=== PATIENT | male | born 1930 | race Caucasian/White ===

== ENCOUNTER 2017-11-23 14:08 | Inpatient (IN) ==
--- OUTSIDE RECORDS SUMMARY | 2017-11-23 16:05 | External Medical Summary | Summary of Care ---
:1930 Author Name Cal Santiago M.D. Address [address] [place] [address] [place] [address] Care Team Providers Name Role Phone Jeovanny Gonzalez, Juyd Mcmanus Unavailable Unavailable Jack Gonzalez, Cal Unavailable Unavailable Lesly Tucker Unavailable Unavailable Justine Gonzalez, Guy Unavailable Unavailable zzTobiaYonathan fierro Unavailable Unavailable Unavailable Unavailable Unavailable Functional Status Functional Status Health Issues Name Dates Details Functional status health issues are not documented Status: Cognitive Status Health Issues Name Dates Details Cognitive status health issues are not documented Status: Problems Name Dates Details Nycturia (788.43, R35.1) Status: Active Dizziness (780.4, R42) Status: Active Insomnia (780.52, G47.00) Status: Active Osteoporosis (733.00, M81.0) Status: Active Upper respiratory infection (465.9, J06.9) Status: Active Basal cell carcinoma of skin (173.91, C44.91) Status: Active Anxiety disorder (300.00, F41.9) Status: Active Mitral regurgitation (424.0, I34.0) Status: Active Benign essential hypertension (401.1, I10) Status: Active Contusion (924.9, T14.8) Status: Active Hyperlipidemia (272.4, E78.5) Status: Active Hypertrophy of breast (611.1, N62) Status: Active Anemia (285.9, D64.9) Status: Active Fecal occult blood test positive (792.1, R19.5) Status: Active Diverticulosis (562.10, K57.90) Status: Active Iron deficiency anemia (280.9, D50.9) Status: Active Foreign body in colon (936, T18.4XXA) Status: Active BPH (benign prostatic hypertrophy) (600.00, N40.0) Status: Active 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 Refills: 0 Yonathan Up M.D. Start 23-Jul-2008 Active Caltrate 600+D 600-400 MG-UNIT TABS TAKE 1 TABLET DAILY. Refills: 0 Yonathan Up M.D. Start 23-Jul-2008 Active Co Q-10 150 MG Oral Capsule TAKE DIRECTED. Refills: 0 Yonathan Up M.D. Start 23-Jul-2008 Active Saw [place] 450 MG Oral Capsule TAKE DIRECTED. Refills: 0 Yonathan Up M.D. Start 23-Jul-2008 Active Vitamin E 100 UNIT Oral Capsule TAKE 1 TABLET DAILY. Refills: 0 Yonathan Up M.D. Start 23-Jul-2008 Active DiazePAM 5 MG Oral Tablet TAKE 1 TABLET NEEDED. Quantity: 30 Refills: 5 Yonathan Up M.D. Start 23-Jul-2008 Active Alendronate Sodium 70 MG Oral Tablet TAKE 1 TABLET ONCE WEEKLY(SAME DAY ONCE EVERY WEEK) Quantity: 4 Refills: 12 Guy Fletcher M.D. Start 29-Jun-2009 Active Lisinopril 10 MG Oral Tablet TAKE 1 TABLET DAILY DIRECTED. Quantity: 30 Refills: 11 Yonathan Up M.D. Start 24-Aug-2009 Active Simvastatin 20 MG Oral Tablet TAKE 1 TABLET DAILY. Quantity: 30 Refills: 5 Yonathan Up M.D. Start 02-Aug-2009 Active Furosemide 40 MG Oral Tablet TAKE ONE TABLET BY MOUTH DAILY. Quantity: 30 Refills: 11 Jyotsna P.ADinesh Gabriel Start 02-Aug-2009 Active Finasteride 5 MG Oral Tablet take one tablet by mouth every day Quantity: 90 Refills: 3 Cal Santiago M.D. 27-Nov-2012 Active RaNITidine HCl TABS Refills: 0 Active Metoprolol Tartrate TABS Refills: 0 Active Xarelto TABS Refills: 0 Active Allergies and Adverse Reactions Name Dates Details No Known Drug Allergies (Allergy) Status: Active Past Medical History Name Dates Details History of aortic valve insufficiency (V12.59, Z86.79) Status: Resolved History of Inflamed seborrheic keratosis (702.11, L82.0) Status: Resolved Procedures Procedure Dates Details History of Aortic Valve Replacement History of Hernia Repair Inguinal Sliding History of Cataract Surgery History of Capsule Endoscopy Procedures not documented Immunization Name Dates Details Immunizations not documented Family History Unknown Family Member Name Dates Details Family history of Valvular Heart Disease Comments: Family History Status: Active Family history of Composition Of Household ___ Brothers Comments: Family History Status: Active Family history of Composition Of Household ___ Sisters Comments: Family History Status: Active Family history of Marfan Syndrome Comments: Family History Status: Active Mother Name Dates Details Family history of Stroke Syndrome (V17.1) Status: Active Family history of Amnestic disorder due to another medical condition (294.0, F06.8) Status: Active Father Name Dates Details Family history of Acute Myocardial Infarction (V17.3) Status: Active Sister Name Dates Details Family history of Valvular Heart Disease Status: Active Family history of Stroke Syndrome (V17.1) Status: Active Brother Name Dates Details Family history of Stroke Syndrome (V17.1) Status: Active Family history of Pacemaker Placement Status: Active Family history of Rhythm Disorder Status: Active Social History Name Dates Details - Status: Smoking Status Name Dates Details Former smoker Vital Signs Date Test Result Details No Known Vitals to report Results Date Description Value Details Results not documented Plan of Care Name Dates Details Planned Observations Planned Goals not documented Planned Encounters Appointment; Provider: Lorenzo Barrow M.D. On 30-May-2017 13:45 Interventions Provided Medication ChangesFinasteride 5 MG Oral Tablet - Renew Instructions Name Dates Details Instructions not documented Encounters Appointment; Lorenzo Barrow M.D. On 24-May-2016 Encounter Diagnosis: Problem not documented 14:15 Appointment; Ken Lazo M.D.,[facility], On 19-Jan-2016 Encounter Diagnosis: Problem not documented 11:45 Appointment; Lorenzo Barrow M.D. On 11-Jun-2015 Encounter Diagnosis: Problem not documented 18:00 Appointment; Lorenzo Barrow M.D. On 09-Jun-2015 Encounter Diagnosis: Problem not documented 08:45 Appointment; Lorenzo Barrow M.D. On Encounter Diagnosis: Problem not documented 14:30
--- OUTSIDE RECORDS SUMMARY | 2017-11-23 16:05 | External Medical Summary | Summary of Care ---
:1930 Author Name Clifton Gonzalez, HARRISON, , M Ken Address [address] [place], [place] [id number] Care Team Providers Name Role Phone Judy Up M.D. 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 Refills: 0 Yonathan Up M.D. Started 23-Jul-2008 ActiveCaltrate 600+D 600-400 MG-UNIT TABS TAKE 1 TABLET DAILY. Refills: 0 Yonathan Up M.D. Started 23-Jul-2008 ActiveCo Q-10 150 MG Oral Capsule TAKE DIRECTED. Refills: 0 Yonathan Up M.D. Started 23-Jul-2008 ActiveSaw [place] 450 MG Oral Capsule TAKE DIRECTED. Refills: 0 Yonathan Up M.D. Started 23-Jul-2008 ActiveVitamin E 100 UNIT Oral Capsule TAKE 1 TABLET DAILY. Refills: 0 Yonathan pU M.D. Started 23-Jul-2008 ActiveDiazepam 5 MG Oral Tablet TAKE 1 TABLET NEEDED. Quantity: 30 Refills: 5 Yonathan Up M.D. Started 23-Jul-2008 ActiveAlendronate Sodium 70 MG Oral Tablet TAKE 1 TABLET ONCE WEEKLY(SAME DAY ONCE EVERY WEEK) Quantity: 4 Refills: 12 Guy Fletcher M.D. Started 29-Jun-2009 ActiveLisinopril 10 MG Oral Tablet TAKE 1 TABLET DAILY DIRECTED. Quantity: 30 Refills: 11 Yonathan Up M.D. Started 24-Aug-2009 ActiveSimvastatin 20 MG Oral Tablet TAKE 1 TABLET DAILY. Quantity: 30 Refills: 5 Yonathan Up M.D. Started 02-Aug-2009 ActiveFurosemide 40 MG Oral Tablet TAKE ONE TABLET BY MOUTH DAILY. Quantity: 30 Refills: 11 Dinesh Goyal Started 02-Aug-2009 ActiveFinasteride 5 MG Oral Tablet take one tablet by mouth every day Quantity: 90 Refills: 3 Lor Ramos PA-C Started 27-Nov-2012 ActiveRanitidine HCl TABS Refills: 0 ActiveMetoprolol Tartrate TABS Refills: 0 ActiveXarelto TABS Refills: 0 Active Allergies and Adverse Reactions Name Dates Details No Known Drug Allergies Status: Active Past Medical History Name Dates Details History of aortic valve insufficiency (V12.59, Z86.79) Status: Resolved History of Elevated prostate specific antigen (PSA) (790.93, R97.2) Status: Resolved History of Inflamed seborrheic keratosis [...] Status: Active Social History Name Dates Details Smoking StatusFormer smoker Vital Signs Date Test Result Details No Known Vitals to report Results Date Description Value Details Results not documented Plan of Care Planned Observations Name Dates Details Planned Goals not documented Goal Planned Encounters Appointment; Provider: Ken Lazo On 24-Jan-2017 13:15 Appointment; Provider: Lorenzo Barrow On 14:30 Instructions Instructions not documented Encounters Appointment; Ken Lazo On 19-Jan-2016 Encounter Diagnosis: Problem not documented 11:45 Appointment; Lorenzo Barrow On 11-Jun-2015 Encounter Diagnosis: Problem not documented 18:00 Appointment; Lorenzo Barrow On 09-Jun-2015 Encounter Diagnosis: Problem not documented 08:45 Appointment; Lorenzo Barrow On Encounter Diagnosis: Problem not documented 14:30 Appointment; Ken Lazo On 12-Jan-2015 Encounter Diagnosis: Problem not documented 13:45 Appointment; Praveena Rodriguez On 01-Dec-2014 Encounter Diagnosis: Problem not documented 07:30 Appointment; Shawna Greene On 18-Nov-2014 Encounter Diagnosis: Problem not documented 12:15 Appointment; Praveena Rodriguez On 18-Nov-2014 Encounter Diagnosis: Problem not documented 10:00 Appointment; Lorenzo Barrow On Encounter Diagnosis: Problem not documented 13:15
--- OUTSIDE RECORDS SUMMARY | 2017-11-23 16:05 | External Medical Summary | Summary of Care ---
:1930 Author Name Cal Santiago M.D. Address [address] [place] [address] [place] [address] Care Team Providers Name Role Phone Jeovanny Gonzalez, Judy Mcmanus Unavailable Unavailable Jack Gonzalez, Cal Unavailable [...] Yonathan Up M.D. Start 23-Jul-2008 Active Saw [place] 450 MG Oral Capsule TAKE DIRECTED. Refills: [...] Details Instructions not documented Encounters Appointment; Lorenzo Barorw M.D. On 24-May-2016 Encounter Diagnosis: Problem not documented 14:15 Appointment; Ken Lazo M.D.,[facility], On 19-Jan-2016 Encounter Diagnosis: Problem not documented 11:45 Appointment; Lorenzo Barrow M.D. On 11-Jun-2015 Encounter Diagnosis: Problem not documented 18:00 Appointment; Lorenzo Barrow M.D. On 09-Jun-2015 Encounter Diagnosis: Problem not documented 08:45 Appointment; Lorenzo Barrow M.D. On Encounter Diagnosis: Problem not documented 14:30 Appointment; Ken Lazo M.D.,[facility], On 12-Jan-2015 Encounter Diagnosis: Problem not documented 13:45
--- OUTSIDE RECORDS SUMMARY | 2017-11-23 16:05 | External Medical Summary | Summary of Care ---
:1930 Author Name Lor Ramos PA-C Address [address], [place] [id number] Care Team Providers Name Role Phone Judy Up M.D. Unavailable Unavailable Clifton Gonzalez, HARRISON, ,, M Ken Unavailable Unavailable Lesly Tucker Unavailable Unavailable Justine [...] Active Anxiety disorder (300.00, F41.9) Status: Active Actinic keratosis (702.0, L57.0) Status: Active Mitral regurgitation (424.0, I34.0) Status: [...] (benign prostatic hypertrophy) (600.00, N40.0) Status: Active Medications Name Dates Details Centrum Silver Oral Tablet TAKE 1 TABLET DAILY. Refills: 0 Yonathan Up M.D. Started 23-Jul-2008 ActiveCaltrate 600+D 600-400 MG-UNIT Oral Tablet TAKE 1 TABLET DAILY. Refills: 0 Yonathan Up M.D. Started 23-Jul-2008 ActiveCo Q-10 150 MG Oral Capsule TAKE DIRECTED. Refills: 0 Yonathan pU M.D. Started 23-Jul-2008 ActiveSaw [place] 450 MG Oral Capsule TAKE DIRECTED. Refills: 0 Yonathan Up M.D. Started 23-Jul-2008 ActiveVitamin E 100 UNIT Oral Capsule TAKE 1 TABLET DAILY. Refills: 0 Yonathan Up M.D. Started 23-Jul-2008 ActiveDiazepam 5 MG Oral [...] mouth every day Quantity: 90 Refills: 3 Ken Lazo M.D., [facility], , Started 27-Nov-2012 ActiveRanitidine HCl TABS Refills: 0 [...] of Cataract Surgery History of Capsule Endoscopy EPO PANEL 3699 Ordered:18-Nov-2014 Immunization Name Dates Details Immunizations not documented [...] Planned Encounters Appointment; Provider: Ken Lazo On 19-Jan-2016 11:45 Appointment; Provider: Lorenzo Barrow On 14:30 Instructions Instructions not documented Encounters Appointment; Ken Lazo On 12-Jan-2015 Encounter Diagnosis: Problem not documented 13:45 Appointment; February On 01-Dec-2014 Encounter Diagnosis: Problem not documented 07:30 Appointment; Shawna Greene On 18-Nov-2014 Encounter Diagnosis: Problem not documented 12:15 Appointment; February On 18-Nov-2014 Encounter Diagnosis: Problem not documented 10:00 Appointment; Lorenzo Barrow On Encounter Diagnosis: Problem not documented 13:15 Appointment; Ken Lazo On 07-Jan-2014 Encounter Diagnosis: Problem not documented 14:45 Appointment; Lorenzo Barrow On Encounter Diagnosis: Problem not documented 17:15 Appointment; Lorenzo Barrow On Encounter Diagnosis: Problem not documented 13:30
--- OUTSIDE RECORDS SUMMARY | 2017-11-23 16:05 | External Medical Summary ---
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 Active 02232749 unspecified Problem Hyperlipidemia E78.5 Active 41430577 Problem Anxiety disorder, F41.9 Active 482925364 unspecified Problem Benign prostatic N42.9 Active 14376653 disease Problem Blood loss anemia D50.0 Active 737082234 Problem Hematoma of leg S80.10XA Active 578735489 Problem Hematoma of left S80.12XA Active 963657000 lower extremity Problem Age-related M81.0 Active 89157048 osteoporosis without current pathological fracture Problem Cellulitis of left L03.116 Active 383787845 lower leg ALLERGIES No Information SOCIAL HISTORY Never Assessed PLAN OF CARE VITAL SIGNS MEDICATIONS Medication Instructions Dosage Frequency Start End Duration Status Date Date Glucosamine 500 Orally BID 1 capsule 12h Active MG with a meal PreserVision Orally BID 1 tablet 12h Active AREDS - Calcium 1200 Orally Once a 1 tablet 24h Active 1808-9158 day with a meal MG-UNIT Klonopin 0.5 MG Orally Twice a 1 tablet 12h 30 days Active day Simvastatin 20 Orally Once a 1 tablet in 24h Jun, Active MG day the evening 2014 Furosemide 40 MG Orally Once a 1 tablet 24h Jun, Active day 2014 Saw [place] 450 as directed Jun, Active MG 2014 Amlodipine Orally Once a 1 tablet 24h Active Besylate 5 MG day Co Q-10 Vitamin Orally Once a 2 capsules 24h Active E Fish Oil day with a meal 32-90-32-200 Finasteride 5 MG Orally Once a 1 tablet 24h 60 Active day Centrum Silver as directed Jun, Prolia 60 MG/ML as directed Jun, Xarelto 20 MG Orally Once a 1 tablet 24h Jun, Active day with food 2014 RESULTS No Results PROCEDURES Procedure Date Ordered Result Body Site INJ : Td 7YRS AND OLDER (Decavac)(Tenivac) Aug 24, 2017 IMMUNIZATIONS Vaccine Route Administration Date Status INJ: TD (DECAVAC/TENIVAC) 7 YRS IM Intramuscular Aug 24, 2017 Administered & OLDER MEDICAL (GENERAL) HISTORY Type Description Date Medical History Hypertension Medical History Anxiety disorder, unspecified Medical History Hyperlipidemia Medical History Marfan's syndrome, unspecified Surgical History inguinal hernia repair 2002, 2005 Surgical History cataract removal 2003, 2012 Surgical History aortic valve replacement 2008 Surgical History retina repair 2012 Surgical History thoracic aortic valve repair 2013 [facility] [address]
--- OUTSIDE RECORDS SUMMARY | 2017-11-23 16:05 | External Medical Summary ---
:1930 Author Organization [facility] Address [address] [place] [address] Care Team Providers Name Role Phone Dinesh Goyal Unavailable Unavailable PROBLEMS Type Condition ICD9-CM Code [id number] Onset Condition SNOMED Code Code Dates Status Problem Hypertension I10 Active 86674154 Problem Skin tear of elbow S51.019A Active 682081334 without complication Problem Marfan's syndrome, Q87.40 Active 26735137 unspecified Problem Hyperlipidemia E78.5 Active 68950027 Problem Anxiety disorder, F41.9 Active 843777152 unspecified Problem Benign prostatic N42.9 Active 71593667 disease Problem Blood loss anemia D50.0 Active 349440838 Problem Hematoma of leg S80.10XA Active 691686903 Problem Hematoma of left S80.12XA Active 853776246 lower extremity Problem Age-related M81.0 Active 65939819 osteoporosis without current pathological fracture Problem Cellulitis of left L03.116 Active 137391547 lower leg ALLERGIES No Known Allergies SOCIAL HISTORY Never Assessed PLAN OF CARE Activity Details Follow Up prn Reason: VITAL SIGNS Weight 152.8 lbs 2017-10-11 Height 75 in 2017-10-11 Heart Rate 53 /min 2017-10-11 Respiratory Rate 20 /min 2017-10-11 Temperature 98.1 degrees Fahrenheit 2017-10-11 Oximetry 93 % 2017-10-11 BMI 19.10 kg/m2 2017-10-11 Blood pressure systolic 130 mm Hg 2017-10-11 Blood pressure diastolic 68 mm Hg 2017-10-11 MEDICATIONS Medication Instructions Dosage Frequency Start End Duration Status Date Date Finasteride 5 MG Orally Once a 1 tablet 24h 60 Active day Furosemide 40 MG Orally Once a 1 tablet 24h Jun, day 2014 Amlodipine Orally Once a 1 tablet 24h Active Besylate 5 MG day Xarelto 20 MG Orally Once a 1 tablet 24h Jun, Active day with food 2014 Calcium 1200 Orally Once a 1 tablet 24h Active 9785-1651 day with a meal MG-UNIT Amoxicillin 500 Orally every 12 2 capsule 12h Sep, day(s) Active MG hrs 2017 Co Q-10 Vitamin Orally Once a 2 capsules 24h Active E Fish Oil day with a meal 36-77-64-200 Centrum Silver as directed Jun, 2014 Prolia 60 MG/ML as directed Jun, 2014 Simvastatin 20 Orally Once a 1 tablet in 24h Jun, Active MG day the evening 2014 Saw [place] 450 as directed Jun, Active MG 2014 Klonopin 0.5 MG Orally Twice a 1 tablet 12h 30 days Active day PreserVision Orally BID 1 tablet 12h Active AREDS - Glucosamine 500 Orally BID 1 capsule 12h Active MG with a meal RESULTS No Results PROCEDURES No Known procedures IMMUNIZATIONS No Known Immunizations MEDICAL (GENERAL) HISTORY Type Description Date Medical History Hypertension Medical History Anxiety disorder, unspecified Medical History Hyperlipidemia Medical History Marfan's syndrome, unspecified Surgical History inguinal hernia repair 2002, 2005 Surgical History cataract removal 2003, 2012 Surgical History aortic valve replacement 2008 Surgical History retina repair 2012 Surgical History thoracic aortic valve repair 2013 Hospitalization History [facility] [place] [address]
--- OUTSIDE RECORDS SUMMARY | 2017-11-23 16:06 | External Medical Summary | Summary of Care ---
:1930 Author Name Lor Ramos PA-C Address [address] [place], [place] [address] Care Team Providers Name Role Phone Judy [...] of right ear (173.22, C44.222) Status: Active Medications Name Dates Details Centrum Silver Oral Tablet TAKE 1 TABLET DAILY. Refills: 0 Yonathan Up M.D. Started 23-Jul-2008 ActiveCaltrate 600+D 600-400 MG-UNIT TABS TAKE 1 TABLET DAILY. Refills: 0 Yonathan Up M.D. Started 23-Jul-2008 ActiveCo Q-10 150 MG Oral Capsule TAKE DIRECTED. Refills: 0 Yonathan Up M.D. Started 23-Jul-2008 ActiveSaw [place] 450 MG Oral Capsule TAKE DIRECTED. Refills: [...]
[2017-11-23 16:42] VITALS: BMI 19.4
--- NOTE | 2017-11-23 17:43 | Cardiology Consult Note ---
<Lilli Hernandez - Last Filed: 11/26/17 09:26> History of Present Illness Consult date: 11/23/17 Requesting physician: Nahid Marquez IV Consult reason: atrial fibrillation Chief complaint: HARDING History of present illness: Jean" is a pleasant 87 year old male who is known to Dr. Cowan's practice with a history of Marfan's syndrome s/p Aortic valve replacement, repair of thoracic aortic aneurysm, and PAF for which he takes Xarelto. He resides in [place], [place] with his , Adenike. He saw Gladys Finn APRN on 11/23/17 d/t having SOA for the last 2-3 weeks. He complains of not having any energy and no stamina. He usually exercises 3-4 days per week but he hasn't been able to do that lately. He's had increased anxiety. He notes sore joints, but added this has been present for several years. He denies chest pain or palpitations. He denies fever or chills, cough/congestion/sore throat, headaches, abdominal pain , n/v/d/c, or dysuria. His appetite has been stable and he denies weight changes. He has urinary frequency from taking diuretics. He has chronic lower ext edema that has been stable and he denies PND, although is added that he did not sleep well last night - frequently made "snorting" sounds when he was breathing. In the clinic, he was hypoxic at 85% on room air. He does not use oxygen at home. Labs showed: Na 138, K 4.7, BUN 37, Cr 1.4, BNP 590 (H), trop neg, Hgt 12.7, WBC 8.3, plt 199. Review of Systems - Constitutional Constitutional: Present: weakness. Absent: chills, fever(s) - EENMT Eyes: Present: requires corrective lenses. Absent: change in vision Balance: Present: vertigo Mouth/Throat: Absent: sore throat - Cardiovascular Cardiovascular: Present: dyspnea on exertion, edema. Absent: chest pain, palpitations, syncope Rhythm: Present: abnormal rhythm Vascular: Present: pedal edema - Respiratory Respiratory: Absent: cough - Gastrointestinal Gastrointestinal: Absent: abdominal pain, diarrhea, nausea, vomiting - Genitourinary Genitourinary: Absent: dysuria - Integumentary/Breasts Integumentary: Present: swelling. Absent: rash - Neurological Neurological: Present: sensory deficit, weakness. Absent: headache(s) - Psychiatric Psychiatric: Present: anxiety - Endocrine Endocrine: Absent: palpitations [facility] Patient Stated Medical History Cataracts removal 2003,2012 Other HEENT Yes: retinal hemorage current Cardiac Arrhythmia Yes: PAF Heart Murmur Yes Hypertension Yes Hx Benign Prostatic Yes Hyperplasia Hx Incontinence Yes Marfan's syndrome HTN Hyperlipidemia Anxiety Surgical History: Thoracic aortic aneurysm repair 2013. Aortic valve replacement 2008. Retinal repair 2012. Cataract removal 2003, 2012. Inguinal hernia repair 2002, 2005. Hematoma evacuation and wound vac application to left lower ext Family History: Father - at age 57 of a heart attack. Mother - at age 83 of old age. She had a stroke and diabetes. Brother - at age 42 of Cerebral aneurysm. He also had heart disease. Twin sisters - one of pulmonary complications of lupus at age 79. The other twin sister is still living with CAD at age 90. Brother - at age 85; he had CAD and a pacemaker. Sister - at age 65 of a cerebral aneurysm. 3 children are healthy. - Social History Smoking status: Former smoker Medications Home Medications Medication Instructions Recorded Confirmed Type Calcium Carbonate/Vitamin D3 2 tab PO DAILY #0 10/03/13 11/23/17 History (Calcium + D 600 Mg Tablet) Denosumab [Prolia] 60 mg SQ FEBRUARY AND AUGUST #0 10/03/13 History Finasteride 5 mg PO DAILY #0 10/03/13 11/23/17 History Furosemide 40 mg PO DAILY #0 10/03/13 11/23/17 History Multivitamins W-Minerals/Lut 1 tab PO DAILY #0 10/03/13 11/23/17 History (Centrum Silver Tablet) SAW PALMETTO 320 mg PO DAILY #0 10/03/13 11/23/17 History Simvastatin 20 mg PO HS #0 10/03/13 11/23/17 History Ubidecarenone/[place]-3/Vit E [Co 1 cap PO DAILY #0 10/03/13 11/23/17 History Q-10-Vit E-Fish Oil Sfgl] Rivaroxaban [Xarelto] 20 mg PO DAILY #0 tab 10/23/14 11/23/17 History Amlodipine [Norvasc] 5 mg PO DAILY 11/23/17 11/23/17 History ClonazePAM [Klonopin] 1-2XD PRN 11/23/17 History Allergies Allergy/AdvReac Type Severity Reaction Status Date / Time No Known Allergies Allergy Unverified 10/03/13 13:35 Exam Vital signs: Temperature 97.8 F 11/23/17 16:10 Pulse Rate 110 H 11/23/17 16:10 Respiratory Rate 22 11/23/17 16:10 Blood Pressure 147/77 H 11/23/17 16:10 Pulse Oximetry 94 11/23/17 16:10 - Routine Respiratory Exam Present: rales (left basilar) - Routine Cardiovascular Exam Present: murmur (III/) - Routine Extremities Exam Present: edema (Richard LEs) Results 11/24/17 03:57 11/24/17 03:57 Intake and Output 11/23/17 11/23/17 11/23/17 06:59 14:59 22:59 Output Total 100 / 100 Balance -100 / -100 Output: Urine 100 / 100 Other: Urine Appearance Clear Urine Color Pale Urine Odor Normal Weight 155 lb 6.814 oz Patient Weight 11/24/17 06:59 Weight 155 lb 6.814 oz - Imaging and Cardiology Imaging & Cardiology Narrative: 03Date of Exam: 11/23/17 Ordering Provider: Lilli Hernandez APRN Type of Exam(s): XR chest 2V Reason for Exam(s): afib INDICATION: afib PROCEDURE: CHEST 2-VIEWS UPRIGHT (PA & LAT) Encounter: Initial COMPARISON: None FINDINGS: Diffuse increased reticular markings throughout both lung mendiola areas of bronchial wall thickening. Subpleural fibrotic changes are also seen with possible areas of honeycombing. Blunting of both costophrenic angles probably due to pleural thickening or scarring. No pneumothorax. Prior CABG. Cardiac silhouette is mildly enlarged. Mediastinal contours are within normal limits. Pulmonary vascularity is difficult to visualize. 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 A superimposed viral/atypical pneumonia or edema cannot be excluded. 09:28 Assessment and Plan - Assessment and Plan (1) Acute respiratory failure with hypoxia Status: Acute (2) Marfan syndrome Status: Acute (3) HTN (hypertension) Status: Acute (4) HLD (hyperlipidemia) Status: Acute - Assessment and Plan Acute respiratory failure with hypoxia - CXR reviewed and shows pulmonary edema. - Echo: atrial dilation, normal LV function with EF 54%, bileaflet mitral valve prolapse, moderate MR, normal bioprosthetic aortic valve, mild TR with PAP of 50. - Ordered Lasix 40mg IV BID with KCL replacement. - Monitor. Paroxysmal A-fib - Chronic. - Rate controlled. - Continue Xarelto. - Monitor cardiac telemetry. Marfan syndrome - AVR 2008 and thoracic aortic aneurysm repair 2013. HTN HLD Con't statin and no ASA with Xarelto. Hospital Course Summary Disclaimer: The visit summary below is not to be considered part of the above Progress Note. <Noah Cowan - Last Filed: 12/03/17 16:56> [facility] Patient Stated Medical History Cataracts removal 2003,2012 Other HEENT Yes: retinal hemorage current Cardiac Arrhythmia Yes Heart Murmur Yes Hypertension Yes Hx Benign Prostatic Yes Hyperplasia Hx Incontinence Yes Exam Vital signs: Temperature 97.5 F 11/26/17 08:00 Pulse Rate 105 H 11/26/17 08:00 Respiratory Rate 18 11/26/17 08:00 Blood Pressure 105/55 11/26/17 08:00 Pulse Oximetry 95 11/26/17 08:00 Results 11/26/17 11:54 11/26/17 11:54 Assessment and Plan - Attestation Attestation Narrative: 12/03/17 16:56 Recommendation After examining the patient I agree with the above assessment. I am involved in the formulation of the patient's plan of care. - Assessment and Plan (1) Acute respiratory failure with hypoxia Status: Acute (2) Marfan syndrome Status: Acute (3) HTN (hypertension) Status: Acute (4) HLD (hyperlipidemia) Status: Acute Hospital Course Summary Disclaimer: The visit summary below is not to be considered part of the above Progress Note.
--- NOTE | 2017-11-23 17:46 | History & Physical Report ---
History of Present Illness Date: 11/23/17 Chief complaint: no stamina HPI: "Charisma Perera is a direct admission from [facility]. He is a pleasant 87 y/o male w/ a hx of Marfan's syndrome s/p Aortic valve replacement, repair of thoracic aortic aneurysm, and hx of A-fib for which he takes Xarelto. He resides in [place], [place] with his , Adenike. He saw Gladys Finn APRN on 11/23/17 d /t having SOA for the last 2-3 weeks. He complains of not having any energy and no stamina. He usually exercises 3-4 days per week but he hasn't been able to do that lately. He's had increased anxiety. He notes sore joints, but added this has been present for several years. He denies chest pain or palpitations. He denies fever or chills, cough/congestion/sore throat, headaches, abdominal pain, n/v/d/c, or dysuria. His appetite has been stable and he denies weight changes. He has urinary frequency from taking diuretics. He has chronic lower ext edema that has been stable and he denies PND, although is added that he did not sleep well last night - frequently made "snorting" sounds when he was breathing. In the clinic, he was hypoxic at 85% on room air. He does not use oxygen at home. Labs showed: Na 138, K 4.7, BUN 37, Cr 1.4, BNP 590 (H), trop neg, Hgt 12.7, WBC 8.3, plt 199. Review of Systems All systems PM: 10-point ROS was reviewed, no additional remarkable complaints except - Constitutional Constitutional: Present: as per HPI - EENMT Eyes: Present: requires corrective lenses. Absent: change in vision Balance: Absent: ataxia Nose: Absent: obstruction Mouth/Throat: Present: as per HPI - Cardiovascular Cardiovascular: Present: as per HPI Rhythm: Present: abnormal rhythm Vascular: Present: see HPI - Respiratory Respiratory: Present: as per HPI - Gastrointestinal Gastrointestinal: Present: as per HPI - Genitourinary Genitourinary: Present: as per HPI - Musculoskeletal Musculoskeletal: Present: as per HPI - Integumentary/Breasts Integumentary: Absent: rash, wounds (no current wounds) - Neurological Neurological: Present: weakness. Absent: abnormal gait, confusion, dizziness, focal weakness, frequent falls, headache(s), loss of vision, numbness, paresthesias, sensory deficit - Psychiatric Psychiatric: Present: anxiety - Endocrine Endocrine: Absent: palpitations - Hematologic/Lymphatic Hematologic/Lymphatic: Present: easy bruising Past Medical History Marfan's syndrome PAF HTN Hyperlipidemia Anxiety Surgical History: Thoracic aortic aneurysm repair 2013. Aortic valve replacement 2008. Retinal repair 2012. Cataract removal 2003, 2012. Inguinal hernia repair 2002, 2005. Hematoma evacuation and wound vac application to left lower ext Family History Updates: Father at age 57 of a heart attack. Mother at age 83 of old age. She had a stroke and diabetes. Brother at age 42 of Cerebral aneurysm. He also had heart disease. Twin sisters: one of pulmonary complications of lupus at age 79. The other twin sister is still living with CAD at age 90. One brother at age 85; he had CAD and a pacemaker. Another sister at age 65 of a cerebral aneurysm. 3 children are healthy. 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 Cowan Medications Home Medications Medication Instructions Recorded Confirmed Type Calcium Carbonate/Vitamin D3 2 tab PO DAILY #0 10/03/13 11/23/17 History (Calcium + D 600 Mg Tablet) Denosumab [Prolia] 60 mg SQ FEBRUARY AND AUGUST #0 10/03/13 History Finasteride 5 mg PO DAILY #0 10/03/13 11/23/17 History Furosemide 40 mg PO DAILY #0 10/03/13 11/23/17 History Multivitamins W-Minerals/Lut 1 tab PO DAILY #0 10/03/13 11/23/17 History (Centrum Silver Tablet) SAW PALMETTO 320 mg PO DAILY #0 10/03/13 11/23/17 History Simvastatin 20 mg PO HS #0 10/03/13 11/23/17 History Ubidecarenone/[place]-3/Vit E [Co 1 cap PO DAILY #0 10/03/13 11/23/17 History Q-10-Vit E-Fish Oil Sfgl] Rivaroxaban [Xarelto] 20 mg PO DAILY #0 tab 10/23/14 11/23/17 History Amlodipine [Norvasc] 5 mg PO DAILY 11/23/17 11/23/17 History ClonazePAM [Klonopin] 1-2XD PRN 11/23/17 History Allergies Allergy/AdvReac Type Severity Reaction Status Date / Time No Known Allergies Allergy Unverified 10/03/13 13:35 Exam Vital Signs: Temperature 97.8 F 11/23/17 16:10 Pulse Rate 110 H 11/23/17 16:10 Respiratory Rate 22 11/23/17 16:10 Blood Pressure 147/77 H 11/23/17 16:10 Pulse Oximetry 94 11/23/17 16:10 Height/Weight/BMI: Height 1.91 m Weight 70.5 kg Body Mass Index 19.4 - Constitutional Present: no acute distress, well nourished, well developed, thin - Routine HEENT Exam Head: Present: normocephalic Eye: Present: PERRL. Absent: conjunctival icterus, scleral injection ENT: Present: mucous membranes moist, oropharynx clear, dentition normal - Routine Neck Exam Present: supple - Routine Respiratory Exam Present: crackles (few crackles at bases) - Routine Cardiovascular Exam Present: murmur (4/6 systolic), irregularly irregular - Routine Abdominal Exam Present: soft, normoactive bowel sounds, non distended, non tender - Routine Extremities Exam Present: edema (3+ BLE), pulses intact, normal capillary refill. Absent: extremity cold to touch - Routine Back/Spine/Pelvis Exam Back/Spine: Present: full ROM - Routine Skin Exam Present: intact, dry, warm, scars (old scars to both lower ext.), ecchymosis ( right hand (mild)) - Routine Neurological Exam Present: alert, oriented X3, CN II-XII intact, moving all extremities, vision grossly intact, hearing grossly intact, normal speech. Absent: motor deficit - Routine Psychiatric Exam Present: normal affect, normal thought process, cooperative Results - Labs CBC & Chem 7: 11/23/17 18:02 11/23/17 18:02 Assessment and Plan (1) Hypoxia Current visit: Yes Status: Acute Assessment and Plan: IMPRESSION Acute hypoxic respiratory insufficiency with room air saturations of 85% Marfan's syndrome PAF HTN Hyperlipidemia Anxiety PLAN Admit, inpatient status, under the hospitalist service. Monitor tele, I/O, daily weights. Diet: Cardiac. Dr. Cowan consulted and has already seen the pt - recommends CXR, echo, hold Norvasc d/t edema and hold diuretics until CXR is reviewed. Anxiety - resume home clonazepam - he usually takes one at night and occ will have one earlier in the day. Will also have Ativan available PRN. Wean oxygen as able. Ask nurses to ambulate QID - consult PT if needed. Continue Xarelto for A-fib and for VTE prophylaxis. Advanced directives: is DPOA; has a living will at home; requests full code status. DVT Prophylaxis: Xarelto Resuscitation Status: Full Code - Physician Narrative Physician: Nahid Marquez MD Narrative: Date: 11/23/17 Time: 1914 I have independently evaluated and examined this patient. I reviewed the chart, the patient's history, and the OPHTHALMIC PATHOLOGIST/PA's documented findings as above. We discussed and formulated the assessment and plan as above with additions as below: 87 yo who had noticed SOA for the past couple of weeks. He was not able to be as active as usual. He says he has had some chest tightness when he notices the SOA. He says he takes a tranquilizer and that relieves it. He takes clonazepam for anxiety. He has h/o Marfan's and has had repair to a thoracic aortic aneurysm and and aortic valve replacement. He sought medical attention today in [place] for these concerns and was [place] [facility] [place] and to see Dr. Cowan. NAD. CTAB. IR, IR. s/nt/nd. 2+ BLE edema. A&Ox3. Cooperative. Dr. Cowan is consulted. Obtain echo, CXR. O2 as needed. Accurate I&O's, daily weights. Monitor on tele. Continue Xarelto for afib and DVT ppx. Encourage activity. Hospital Course Summary Disclaimer: The visit summary below is not to be considered part of the above Progress Note. Hospital Course: 11/23/17 Admit, inpatient status, under the hospitalist service. Monitor tele, I/O, daily weights. Diet: Cardiac. Dr. Cowan consulted and has already seen the pt - recommends CXR, echo, hold Norvasc d/t edema and hold diuretics until CXR is reviewed. Anxiety - resume home clonazepam - he usually takes one at night and occ will have one earlier in the day. Will also have Ativan available PRN. Wean oxygen as able. Ask nurses to ambulate QID - consult PT if needed. Continue Xarelto for A-fib and for VTE prophylaxis. Advanced directives: is DPOA; has a living will at home; requests full code status.
[2017-11-23] MEDS: SIMVASTATIN 20 MG TABLET PO SCH (21:38)
[2017-11-24] MEDS: MULTI-VITAMIN + MINERAL TABLET PO SCH (09:08)
[2017-11-24] MEDS: RIVAROXABAN 20 MG TABLET PO SCH (09:08)
[2017-11-24] MEDS: FINASTERIDE 5 MG TABLET PO SCH (09:08)
[2017-11-24] MEDS: CALCIUM 600 + VIT D 400 TABLET PO SCH (09:08)
[2017-11-24] MEDS: FUROSEMIDE 40 MG/4 ML INJECTION IVP SCH ×2 (11:15→20:09)
--- NOTE | 2017-11-24 16:02 | Cardiology Progress Note ---
<Kisha Ko R - Last Filed: 11/24/17 16:32> Subjective Principal diagnosis: Chronic Afib Interval history: CC: Afib, HARDING Mr. Perera states he is feeling better today. States breathing is better, he is on O2 at 2L per NC. Noted 2+ edema to BLE, pt states he "always have some swelling". Denies any CP, palpitations, N/v, diaphoresis. Exam Vital signs: Temperature 98.1 F 11/24/17 15:10 Pulse Rate 82 11/24/17 15:09 Respiratory Rate 16 11/24/17 15:09 Blood Pressure 132/79 11/24/17 15:10 Pulse Oximetry 95 11/24/17 15:09 Inpatient Medications: Generic Name Dose Route Start Last Admin Trade Name Freq PRN Reason Stop Dose Admin Calcium/Vitamin D 2 tab 11/24/17 09:00 11/24/17 09:08 Caltrate + D PO 2 tab DAILY KARIE Administration Finasteride 5 mg 11/24/17 09:00 11/24/17 09:08 Proscar PO 5 mg DAILY KARIE Administration Furosemide 40 mg 11/24/17 11:00 11/24/17 11:15 Lasix IVP 40 mg Q12HR KARIE Administration Lorazepam 0.5 mg 11/23/17 17:56 11/23/17 21:45 Ativan Inj IVP 0.5 mg Q6H PRN Administration Multivitamins/Minerals 1 tab 11/24/17 09:00 11/24/17 09:08 Therapeutic - M PO 1 tab DAILY KARIE Administration Potassium Chloride 20 meq 11/24/17 17:30 K-Dur 20 Meq Tablet PO BIDWM KARIE Rivaroxaban 20 mg 11/24/17 09:00 11/24/17 09:08 Xarelto PO 20 mg DAILY KARIE Administration Simvastatin 20 mg 11/23/17 21:00 11/23/17 21:38 Zocor PO 20 mg HS KARIE Administration - Constitutional no acute distress, cooperative - Routine HEENT Exam Head: Present: normocephalic Eye: Present: EOMI ENT: Present: mucous membranes moist - Routine Neck Exam Present: JVD. Absent: carotid bruit - Routine Respiratory Exam Present: rales Comments: Left Basilar - Routine Cardiovascular Exam Present: murmur (III/), irregularly irregular, JVD - Routine Abdominal Exam Present: soft, non tender. Absent: distended - Routine Extremities Exam Present: edema. Absent: cyanosis, clubbing Comments: 2+BLE - Routine Skin Exam Present: intact, dry, warm. Absent: rash - Routine Neurological Exam Present: alert, oriented X3 - Routine Psychiatric Exam Present: normal affect, cooperative. Absent: anxious, agitated Results 11/24/17 03:57 11/24/17 03:57 Cardiac Enzymes 11/23/17 Range/Units 18:02 AST 37 (17-59) U/L CBC 11/23/17 11/24/17 Range/Units 18:02 03:57 WBC 8.8 8.0 (4.5-11.0) T/MM3 RBC 4.43 L 4.09 L (4.50-5.90) M/MM3 Hgb 12.6 L 11.6 L (13.5-17.5) GM/DL Hct 39.7 L 37.2 L (41-53) % Plt Count 201 188 (130-400) T/MM3 Neut # (Auto) 6.7 5.3 (1.8-7.7) T/MM3 Lymph # (Auto) 1.4 1.6 (1-4.8) T/MM3 [place] # (Auto) 0.7 0.9 H (0-0.8) T/MM3 Eos # (Auto) 0.0 0.1 (0-0.5) T/MM3 Baso # (Auto) 0.0 0.0 (0-0.2) T/MM3 Comprehensive Metabolic Panel 11/23/17 11/24/17 Range/Units 18:02 03:57 Sodium 141 141 (134-144) MEQ/L Potassium 4.1 4.3 (3.6-5) MEQ/L Chloride 102 102 (98-107) MEQ/L Carbon Dioxide 26 30 (22-30) MEQ/L BUN 31.0 H 31.0 H (9-20) MG/DL Creatinine 1.0 1.0 (0.8-1.5) mg/dL Glucose 110 89 (75-110) MG/DL Calcium 8.8 8.6 (8.4-10.2) MG/DL Unconjugated Bilirubin 0.40 (0.00-1.1) mg/dL AST 37 (17-59) U/L ALT 33 (21-72) U/L Alkaline Phosphatase 69 (38-126) U/L Total Protein 7.8 (6.3-8.2) G/DL Albumin 4.0 (3.5-5.0) g/dL Intake and Output 11/24/17 11/24/17 11/24/17 06:59 14:59 22:59 Intake Total 340 / 340 500 / 500 Output Total 500 / 500 Balance 340 / 340 -500 / -500 500 / 500 Intake: Oral 340 / 340 500 / 500 Output: Urine 500 / 500 Other: Urine Appearance Clear Clear Urine Color Yellow Yellow Urine Odor Normal # Voids 2 4 Weight 68.2 kg Patient Weight 11/25/17 06:59 Weight 68.2 kg Assessment and Plan - Assessment and Plan (1) Acute respiratory failure with hypoxia Status: Acute CXR reviewed with and shows pulmonary edema. Echo: atrial dilation, normal LV function with EF 54%, bileaflet mitral valve prolapse, moderate MR, normal bioprosthetic aortic valve, mild TR with PAP of 50. Ordered Lasix 40mg IV BID with KCL replacement. Monitor. (2) Paroxysmal A-fib Status: Acute Chronic. Rates controlled today. Con't Xarelto. Monitor on tele. (3) Marfan syndrome Status: Acute AVR 2008 and thoracic aortic aneurysm repair 2013. (4) HTN (hypertension) Status: Acute Stable, con't to monitor. (5) HLD (hyperlipidemia) Status: Acute Con't statin and no ASA with Xarelto. Hospital Course Summary Disclaimer: The visit summary below is not to be considered part of the above Progress Note. Hospital Course: 11/23/17 Admit, inpatient status, under the hospitalist service. Monitor tele, I/O, daily weights. Diet: Cardiac. Dr. Cowan consulted and has already seen the pt - recommends CXR, echo, hold Norvasc d/t edema and hold diuretics until CXR is reviewed. Anxiety - resume home clonazepam - he usually takes one at night and occ will have one earlier in the day. Will also have Ativan available PRN. Wean oxygen as able. Ask nurses to ambulate QID - consult PT if needed. Continue Xarelto for A-fib and for VTE prophylaxis. Advanced directives: is DPOA; has a living will at home; requests full code status. <Noah Cowan - Last Filed: 12/04/17 13:42> Exam Vital signs: Temperature 97.5 F 11/26/17 08:00 Pulse Rate 105 H 11/26/17 08:00 Respiratory Rate 18 11/26/17 08:00 Blood Pressure 105/55 11/26/17 08:00 Pulse Oximetry 95 11/26/17 08:00 Inpatient Medications: Discontinued Medications Generic Name Dose Route Start Last Admin Trade Name Freanita PRN Reason Stop Dose Admin Calcium/Vitamin D 2 tab 11/24/17 09:00 11/26/17 09:17 Caltrate + D PO 2 tab DAILY KARIE Administration Finasteride 5 mg 11/24/17 09:00 11/26/17 09:17 Proscar PO 5 mg DAILY KARIE Administration Furosemide 40 mg 11/24/17 11:00 11/25/17 08:49 Lasix IVP 40 mg Q12HR KARIE Administration Furosemide 40 mg 11/25/17 15:00 11/25/17 14:54 Lasix IVP 40 mg 0900,1500 KARIE Administration Furosemide 40 mg 11/26/17 09:30 Lasix PO DAILY KARIE Furosemide 40 mg 11/26/17 14:00 Lasix PO 0700,1400 KARIE Furosemide 40 mg 11/26/17 09:31 11/26/17 09:33 Lasix PO 40 mg 09,14 KARIE Administration Furosemide 40 mg 11/26/17 15:00 11/26/17 15:26 Lasix PO Not Given 0900,1500 KARIE Lorazepam 0.5 mg 11/23/17 17:56 11/24/17 21:45 Ativan Inj IVP 0.5 mg Q6H PRN Administration Lorazepam 0.5 mg 11/25/17 23:26 11/25/17 23:30 Ativan PO 0.5 mg Q6H PRN Administration Multivitamins/Minerals 1 tab 11/24/17 09:00 11/26/17 09:17 Therapeutic - M PO 1 tab DAILY KARIE Administration Potassium Chloride 20 meq 11/24/17 17:30 11/26/17 09:17 K-Dur 20 Meq Tablet PO 20 meq BIDWM KARIE Administration Rivaroxaban 20 mg 11/24/17 09:00 11/26/17 09:17 Xarelto PO 20 mg DAILY KARIE Administration Rivaroxaban 20 mg 11/27/17 17:30 Xarelto PO WS KARIE Simvastatin 20 mg 11/23/17 21:00 11/25/17 20:30 Zocor PO 20 mg HS KARIE Administration Results 11/26/17 11:54 11/26/17 11:54 Assessment and Plan - Assessment and Plan (1) Acute respiratory failure with hypoxia Status: Acute (2) Marfan syndrome Status: Acute (3) HTN (hypertension) Status: Acute (4) HLD (hyperlipidemia) Status: Acute - Attestation Attestation Narrative: 12/04/17 13:42 Recommendation After examining the patient I agree with the above assessment. I am involved in the formulation of the patient's plan of care. Hospital Course Summary Disclaimer: The visit summary below is not to be considered part of the above Progress Note.
--- NOTE | 2017-11-24 20:32 | Progress Note ---
- Date 11/24/17 Subjective: Patient denies any complaints, shortness of breath chest pain, palpitations or discomfort. States that his legs still feel swollen but slightly better than yesterday. Remains on 1 L by nasal cannula Objective Vital signs: Temperature 98.1 F 11/24/17 15:10 Pulse Rate 82 11/24/17 15:09 Respiratory Rate 16 11/24/17 15:09 Blood Pressure 132/79 11/24/17 15:10 Pulse Oximetry 91 11/24/17 16:43 Height/Weight/BMI: Height 6 ft 3 in Weight 68.2 kg Body Mass Index 19.4 - Constitutional Present: well nourished, well developed - Routine HEENT Exam Eye: Present: EOMI ENT: Present: mucous membranes moist, dentition normal - Routine Respiratory Exam Present: CTA bilaterally. Absent: wheezes - Routine Cardiovascular Exam Present: RRR. Absent: murmur - Routine Abdominal Exam Present: soft, normoactive bowel sounds, non distended. Absent: tenderness - Routine Extremities Exam Present: edema, normal capillary refill - Routine Skin Exam Present: dry, warm - Routine Neurological Exam Present: alert, oriented X3, CN II-XII intact - Routine Lymphatic Exam Lymphatic: Absent: adenopathy - Routine Psychiatric Exam Present: normal affect Results - Labs CBC & Chem 7: 11/24/17 03:57 11/24/17 03:57 Assessment and Plan (1) Hypoxia Current visit: Yes Status: Acute Assessment and Plan: IMPRESSION Acute hypoxic respiratory insufficiency with room air saturations of 85% Marfan's syndrome PAF HTN Hyperlipidemia Anxiety PLAN continued diuresis. Will attempt to wean to room air. This appears to be the tethering issue keeping him in hospital. Not appear particularly anxious today, quietly pleasant and conversational. Blood pressure and heart rate remaining stable since early this morning. Will discuss with cardiology and perhaps will be able to transition home once he is free of supplemental oxygen need - Physician Narrative Narrative: Date: 11/24/17 Time: 2028 Hospital Course Summary Disclaimer: The visit summary below is not to be considered part of the above Progress Note. Hospital Course: 11/23/17 Admit, inpatient status, under the hospitalist service. Monitor tele, I/O, daily weights. Diet: Cardiac. Dr. Cowan consulted and has already seen the pt - recommends CXR, echo, hold Norvasc d/t edema and hold diuretics until CXR is reviewed. Anxiety - resume home clonazepam - he usually takes one at night and occ will have one earlier in the day. Will also have Ativan available PRN. Wean oxygen as able. Ask nurses to ambulate QID - consult PT if needed. Continue Xarelto for A-fib and for VTE prophylaxis. Advanced directives: is DPOA; has a living will at home; requests full code status.
[2017-11-24] MEDS: SIMVASTATIN 20 MG TABLET PO SCH (21:23)
[2017-11-25] MEDS: FUROSEMIDE 40 MG/4 ML INJECTION IVP SCH (08:49)
[2017-11-25] MEDS: RIVAROXABAN 20 MG TABLET PO SCH (08:50)
[2017-11-25] MEDS: CALCIUM 600 + VIT D 400 TABLET PO SCH (08:50)
[2017-11-25] MEDS: MULTI-VITAMIN + MINERAL TABLET PO SCH (08:50)
[2017-11-25] MEDS: FINASTERIDE 5 MG TABLET PO SCH (08:50)
--- NOTE | 2017-11-25 10:07 | XRay Report ---
INDICATION: afib PROCEDURE: CHEST 2-VIEWS UPRIGHT (PA & LAT) Encounter: Initial COMPARISON: None FINDINGS: Diffuse increased reticular markings throughout both lung mendiola areas of bronchial wall thickening. Subpleural fibrotic changes are also seen with possible areas of honeycombing. Blunting of both costophrenic angles probably due to pleural thickening or scarring. No pneumothorax. Prior CABG. Cardiac silhouette is mildly enlarged. Mediastinal contours are within normal limits. Pulmonary vascularity is difficult to visualize. 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 A superimposed viral/atypical pneumonia or edema cannot be excluded. .
[2017-11-25] MEDS ORDERED: FUROSEMIDE 40 MG/4 ML INJECTION IVP SCH (15:00)
[2017-11-25] MEDS: SIMVASTATIN 20 MG TABLET PO SCH (20:30)
--- NOTE | 2017-11-25 20:57 | Progress Note ---
- Date 11/25/17 Subjective: Patient denies any problems. Nursing however remarks that he has failed to effectively wean off of supplemental oxygen although this is set at a minimal amount. When he mobilizes EGD saturates and remains in the mid-80s for up to 5 minutes time. He has had good urine output noted however Objective Vital signs: Temperature 97.9 F 11/25/17 14:49 Pulse Rate 95 11/25/17 14:49 Respiratory Rate 16 11/25/17 14:49 Blood Pressure 102/50 11/25/17 14:49 Pulse Oximetry 94 11/25/17 17:01 Height/Weight/BMI: Height 6 ft 3 in Weight 65.4 kg Body Mass Index 19.4 - Constitutional Present: well nourished, well developed - Routine HEENT Exam Eye: Present: EOMI ENT: Present: mucous membranes moist, dentition normal - Routine Respiratory Exam Present: CTA bilaterally. Absent: wheezes - Routine Cardiovascular Exam Present: RRR, S1, S2, murmur, click, irregularly irregular - Routine Abdominal Exam Present: soft, normoactive bowel sounds, non distended. Absent: tenderness - Routine Extremities Exam Present: normal capillary refill - Routine Skin Exam Present: dry, warm - Routine Neurological Exam Present: alert, oriented X3, CN II-XII intact - Routine Lymphatic Exam Lymphatic: Absent: adenopathy - Routine Psychiatric Exam Present: normal affect Results - Labs CBC & Chem 7: 11/24/17 03:57 11/24/17 03:57 Assessment and Plan (1) Hypoxia Current visit: Yes Status: Acute Assessment and Plan: IMPRESSION Acute hypoxic respiratory insufficiency with room air saturations of 85% Marfan's syndrome PAF HTN Hyperlipidemia Anxiety PLAN patient remains conversant and pleasant. Has not had any hypotension secondary to his diuresis. Lab work is reassuring. Will attempt to wean off of supplemental oxygen as he has not had prior needed home. - Time spent with patient Time with patient PN: 25 minutes - Physician Narrative Narrative: Date: 11/25/17 Time: 2053 Hospital Course Summary Disclaimer: The visit summary below is not to be considered part of the above Progress Note. Hospital Course: 11/23/17 Admit, inpatient status, under the hospitalist service. Monitor tele, I/O, daily weights. Diet: Cardiac. Dr. Cowan consulted and has already seen the pt - recommends CXR, echo, hold Norvasc d/t edema and hold diuretics until CXR is reviewed. Anxiety - resume home clonazepam - he usually takes one at night and occ will have one earlier in the day. Will also have Ativan available PRN. Wean oxygen as able. Ask nurses to ambulate QID - consult PT if needed. Continue Xarelto for A-fib and for VTE prophylaxis. Advanced directives: is DPOA; has a living will at home; requests full code status.
[2017-11-25] MEDS ORDERED: LORazepam 0.5 MG TABLET PO PRN (23:26)
[2017-11-26 00:10] VITALS: RESP 18
[2017-11-26] MEDS: FINASTERIDE 5 MG TABLET PO SCH (09:17)
[2017-11-26] MEDS: MULTI-VITAMIN + MINERAL TABLET PO SCH (09:17)
[2017-11-26] MEDS: RIVAROXABAN 20 MG TABLET PO SCH (09:17)
[2017-11-26] MEDS: CALCIUM 600 + VIT D 400 TABLET PO SCH (09:17)
[2017-11-26] MEDS ORDERED: FUROSEMIDE 40 MG TABLET PO SCH ×3 (09:30→15:00)
--- NOTE | 2017-11-26 09:39 | Echocardiogram ---
DATE OF PROCEDURE November 23, 2017 This is a two-dimensional echo with spectral Doppler, color-flow and M-mode. It was obtained in a patient with shortness of breath. Left atrium is dilated. Left ventricle end-diastolic dimension is normal. Left ventricular wall thickness is increased. LV systolic function is normal with ejection fraction of 54%. Right atrium is dilated. Right ventricle is normal. Aortic root dimension is normal. Mitral valve appears to show bileaflet mitral valve prolapse with moderate mitral regurgitation. Aortic valve is a bioprosthetic valve which is well seated and appears to show well preserved opening function with no stenosis or insufficiency. Tricuspid valve shows mild tricuspid regurgitation with moderate pulmonary hypertension with estimated pulmonary artery systolic pressure of 50. Pulmonary valve shows no pulmonary insufficiency. There is no pericardial effusion. IMPRESSION 1. Biatrial dilation. 2. Concentric left ventricular hypertrophy. 3. Normal LV systolic function with ejection fraction of 54%. 4. Bileaflet mitral valve prolapse with moderate mitral regurgitation. 5. Bioprosthetic aortic valve which is well seated with appropriate function. 6. Mild tricuspid regurgitation with moderate pulmonary hypertension with estimated pulmonary artery systolic pressure of 50. MTDD
[2017-11-26 10:19] VITALS: BP 105/55; PULSE 105; TEMP 97.5; O2SAT 95
--- NOTE | 2017-11-26 13:24 | Discharge Summary ---
Discharge Information Date of admission: 11/23/17 15:55 Anticipated date of discharge: 11/26/17 Attending Physician: Chris Griffin MD Primary care physician: Dinesh Goyal Consults: 11/23/17 16:58 Physician Consult [CONS] Routine Consulting Provider: Noah Cowan Reason For Exam: a-fib, marfan's syndrome Ordering Provider has Notified Crook Operator: Yes - Discharge Diagnosis (1) Hypoxia Status: Acute - Laboratory Labs: 11/26/17 11:54 11/26/17 11:54 History of Present Illness HPI: "Jean" Trever is a direct admission from [facility]. He is a pleasant 87 y/o male w/ a hx of Marfan's syndrome s/p Aortic valve replacement, repair of thoracic aortic aneurysm, and hx of A-fib for which he takes Xarelto. He resides in [place], [place] with his , Adenike. He saw Gladys Finn APRN on 11/23/17 d /t having SOA for the last 2-3 weeks. He complains of not having any energy and no stamina. He usually exercises 3-4 days per week but he hasn't been able to do that lately. He's had increased anxiety. He notes sore joints, but added this has been present for several years. He denies chest pain or palpitations. He denies fever or chills, cough/congestion/sore throat, headaches, abdominal pain, n/v/d/c, or dysuria. His appetite has been stable and he denies weight changes. He has urinary frequency from taking diuretics. He has chronic lower ext edema that has been stable and he denies PND, although is added that he did not sleep well last night - frequently made "snorting" sounds when he was breathing. In the clinic, he was hypoxic at 85% on room air. He does not use oxygen at home. Labs showed: Na 138, K 4.7, BUN 37, Cr 1.4, BNP 590 (H), trop neg, Hgt 12.7, WBC 8.3, plt 199. Objective Vital signs: Temperature 97.5 F 11/26/17 08:00 Pulse Rate 105 H 11/26/17 08:00 Respiratory Rate 18 11/26/17 08:00 Blood Pressure 105/55 11/26/17 08:00 Pulse Oximetry 95 11/26/17 08:00 Rhythm: Normal Sinus Rhythm Height/Weight/BMI: Height 6 ft 3 in Weight 65.1 kg Body Mass Index 19.4 - Constitutional Present: well nourished, well developed - Routine HEENT Exam Eye: Present: EOMI ENT: Present: mucous membranes moist, dentition normal - Routine Respiratory Exam Present: CTA bilaterally. Absent: wheezes - Routine Cardiovascular Exam Present: RRR, S1, S2, click - Routine Abdominal Exam Present: soft, normoactive bowel sounds, non distended. Absent: tenderness - Routine Extremities Exam Present: normal capillary refill - Routine Skin Exam Present: dry, warm - Routine Neurological Exam Present: alert, oriented X3, CN II-XII intact - Routine Lymphatic Exam Lymphatic: Absent: adenopathy - Routine Psychiatric Exam Present: normal affect Hospital Course This is a general summary of the patient's hospital course. For more details refer to the complete medical record. Hospital course: 11/25/2017 Mr. Perera is very pleasant gentleman who was brought in for fluid overload and secondarily hypoxia due to the fluid status. He was diuresed under telemetry with the assistance of . He was diuresis total fluid loss of 3 kg to significant symptomatic improvement. He is currently comfortable on room air again and asymptomatic. 11/23/17 Admit, inpatient status, under the hospitalist service. Monitor tele, I/O, daily weights. Diet: Cardiac. Dr. Cowan consulted and has already seen the pt - recommends CXR, echo, hold Norvasc d/t edema and hold diuretics until CXR is reviewed. Anxiety - resume home clonazepam - he usually takes one at night and occ will have one earlier in the day. Will also have Ativan available PRN. Wean oxygen as able. Ask nurses to ambulate QID - consult PT if needed. Continue Xarelto for A-fib and for VTE prophylaxis. Advanced directives: is DPOA; has a living will at home; requests full code status. Time spent with patient: greater than 35 minutes Resuscitation Status: Full Code Discharge Plan - Discharge Disposition Discharge Date: 11/26/17 Disposition: 01 Discharged Home, Self-Care *Condition: Stable Reason For Visit (Visit label in EMR): AFIB and hypoxia - Discharge Medications *Discharge Medications: Continue Simvastatin 20 mg PO HS #0 Furosemide 40 mg PO DAILY #0 Finasteride 5 mg PO DAILY #0 Multivitamins W-Minerals/Lut (Centrum Silver Tablet) 1 tab PO DAILY #0 Calcium Carbonate/Vitamin D3 (Calcium + D 600 Mg Tablet) 2 tab PO DAILY #0 Denosumab [Prolia] 60 mg SQ FEBRUARY AND AUGUST #0 Rivaroxaban [Xarelto] 20 mg PO DAILY #0 tab Ubidecarenone/[place]-3/Vit E [Co Q-10-Vit E-Fish Oil Sfgl] 1 cap PO DAILY #0 SAW PALMETTO 320 mg PO DAILY #0 Amlodipine [Norvasc] 5 mg PO DAILY ClonazePAM [Klonopin] 1-2XD PRN PRN Reason: Anxiety - Discharge Packet/Instructions *Diet: Continue with a low-salt diet. Fluid restriction as per cardiology prior *Activity: As tolerated *Pain Management/Treatment: No changes *Wound Care: None Additional Instructions: Weight yourself daily. Victoria weight appears to be around 145 pounds. If daily weight exceeds 150, consider taking an additional Lasix that day *Expected Signs/Symptoms: If worsening shortness of breath or edema, take additional tablet of Lasix *Notify Physician if: Weight is unimproved after adjusting Lasix. If short of breath, edematous, dizzy or having other symptoms that are concerning - Referrals/Follow Up - Patient Handouts Patient Handouts: A-fib (Atrial Fibrillation) (GEN) - Dismissal Complete Discharge Instructions are:: Complete Physician Narrative - Narrative Physician: other Attestation Narrative: Date: 11/26/17 Time: 1320
[2017-11-26] MEDS ORDERED: FUROSEMIDE 40 MG/4 ML ORAL LIQUID PO SCH (14:00)
[2017-11-27] MEDS ORDERED: RIVAROXABAN 20 MG TABLET PO SCH (17:30)
== END 2017-11-26 16:20 | disposition home or self-care (01) | DRG 206 ==
LOC: MED 15:55 → SUATTDRO 15:55
PROVIDERS: ADMIT Internal Medicine; ATTEND Family Medicine